=== PATIENT | female | born 1960 | race Caucasian/White ===

== ENCOUNTER → 2024-09-28 14:22 | Outpatient (CLI) | payer OTHER, MEDICAID, SELFPAY | LOC: RESP 14:29 | PROVIDERS: PCP Family Medicine; Referring Provider Family Medicine; Visit Provider Family Medicine | DX: J43.9 Emphysema, unspecified (principal); F17.210 Nicotine dependence, cigarettes, uncomplicated | CPT/HCPCS: 94010; 94729 ==